=== PATIENT | male | born 1970 | race Caucasian/White ===

== ENCOUNTER 2019-02-25 22:45 | Emergency (ER) | payer SELFPAY ==
[~2019-02-25] VITALS: Ht 182.9 cm; Wt 106.6 kg
[2019-02-25 23:15] LABS: BASOPHILS ABSOLUTE AUTO 0.05 K/mm3 (0.00-0.23); BASOPHILS PERCENT AUTO 0 % (0-2); EOSINOPHILS ABSOLUTE AUTO 0.04 K/mm3 (0.00-0.68); EOSINOPHILS PERCENT AUTO 0 % (0-6); Hematocrit 34.3 % (37.0-53.0); Hemoglobin 11.5 g/dL (13.5-17.5); IMMATURE GRAN ABSOLUTE AUTO 0.06 K/mm3 (0.00-0.10); IMMATURE GRAN PERCENT AUTO 1 % (0-1); LYMPHOCYTES ABSOLUTE AUTO 1.54 K/mm3 (0.84-5.20); LYMPHOCYTES PERCENT AUTO 13 % (21-46); MONOCYTES ABSOLUTE AUTO 0.87 K/mm3 (0.16-1.47); MONOCYTES PERCENT AUTO 7 % (4-13); Mean Corpuscular HGB 33.1 pg (26.0-34.0); Mean Corpuscular HGB Conc 33.5 g/dL (31.5-36.5); Mean Corpuscular Volume 99 fL (80-100); Mean Platelet Volume 10.4 fL (9.1-12.4); NEUTROPHILS ABSOLUTE AUTO 9.41 K/mm3 (1.96-9.15); NEUTROPHILS PERCENT AUTO 79 % (41-73); Platelet Count 213 K/mm3 (150-400); RDW Coefficient Variation 13.2 % (11.7-14.2); RDW Standard Deviation 47.8 fL (35.1-46.3); Red Blood Cell Count 3.47 M/mm3 (4.30-5.90); White Blood Cell Count 11.97 K/mm3 (4.00-11.30)
[2019-02-25 23:30] LABS: International Normalized Ratio 0.98; Prothrombin Time Results 10.4 Sec (9.7-11.5)
[2019-02-25] MEDS ORDERED: Omeprazole20 M1 PO (23:30)
[2019-02-25] MEDS ORDERED: VENL75ER PO (23:31)
[2019-02-25] MEDS ORDERED: SILD50TA PO (23:31)
[2019-02-25 23:34] LABS: Alanine Aminotransfer (ALT/SGP 41 U/L (12-78); Albumin, Blood 3.6 g/dL (3.4-5.0); Albumin/Globulin Ratio 1.1 (0.8-1.8); Alk Phos 76 U/L (50-136); Anion Gap 8 mmol/L (6-16); Aspartate Aminotrans (AST/SGOT 41 U/L (12-37); Bilirubin, Total 0.5 mg/dL (0.1-1.0); Blood Urea Nitrogen 13 mg/dL (8-24); Bun/Creatinine Ratio 13.1 (12.0-20.0); CO2, Blood 27 mmol/L (21-32); Calcium, Blood 8.5 mg/dL (8.5-10.1); Chloride, Blood 106 mmol/L (98-108); Ethanol (Alcohol), Blood, Med <3 mg/dL; Globulin, Blood 3.3 g/dL (2.2-4.0); Glomerular Filtration Rate >60 (60-); Glucose, Blood 121 mg/dL (70-99); Potassium, Blood 3.4 mmol/L (3.5-5.5); Sodium, Blood 141 mmol/L (136-145); Total Protein, Blood 6.9 g/dL (6.4-8.2)
[2019-02-26] MEDS ORDERED: Roxicodone5 MG PO (01:34)
== END 2019-02-26 02:25 | disposition home or self-care (01) ==
LOC: ER 22:45
PROVIDERS: Emergency Medicine
DX: S32.592A Other specified fracture of left pubis, initial encounter for closed fracture (principal); S32.402A Unspecified fracture of left acetabulum, initial encounter for closed fracture; V86.99XA Unspecified occupant of other special all-terrain or other off-road motor vehicle injured in nontraffic accident, initial encounter
CPT/HCPCS: 70450; 71260; 72125; 74177; 80053; 83690; 85025; 85610; 85730; 86850; 86900; 86901; 96361; 96374-59; 99285-25; A9270-GY; G0480; J1170; J7030; Q9967

== ENCOUNTER 2021-02-16 16:17 | Emergency (ER) | payer OTHER ==
[~2021-02-16] VITALS: Ht 188 cm; Wt 97.5 kg
[~2021-02-16 16:17] MED LIST: Omeprazole20 M1 PO; Roxicodone5 MG PO; SILD50TA PO; VENL75ER PO
[2021-02-16] MEDS ORDERED: TRAZ50 PO (19:15)
[2021-02-16] MEDS ORDERED: ATOR20 PO (19:15)
[2021-02-16] MEDS ORDERED: DIVA500ER PO (19:16)
[2021-02-16] MEDS ORDERED: FAMO40 PO (19:16)
[2021-02-16] MEDS ORDERED: Vitamin D2000 UNIT PO (19:16)
[2021-02-16] MEDS ORDERED: Norco 10-325 T1 EACH PO (20:09)
[2021-02-16] MEDS ORDERED: Diclofenac Sodi75 MG PO (20:09)
[2021-02-16] MEDS ORDERED: Robaxin750 MG PO (20:09)
[2021-02-16] MEDS ORDERED: ACET500 PO (20:13)
== END 2021-02-16 20:20 | disposition home or self-care (01) ==
LOC: ER 16:17
DX: M54.16 Radiculopathy, lumbar region (principal); Z79.899 Other long term (current) drug therapy
CPT/HCPCS: 99282

== ENCOUNTER → 2023-06-03 | Outpatient (CLI) | payer OTHER ==
[~2023-06-03] MED LIST changes: +ACET500 PO; +ATOR20 PO; +DIVA500ER PO; +Diclofenac Sodi75 MG PO; +FAMO40 PO; +Norco 10-325 T1 EACH PO; +Robaxin750 MG PO; +TRAZ50 PO; +Vitamin D2000 UNIT PO
== END ==
LOC: LAB 08:38 → PLD 08:38 → LAB SHORT 08:38
DX: L72.8 Other follicular cysts of the skin and subcutaneous tissue (principal)
CPT/HCPCS: 88305